=== PATIENT | female | born 2000 | race Caucasian/White ===

== ENCOUNTER 2024-05-05 05:20 | Emergency (ER) | payer SELFPAY ==
[~2024-05-05] VITALS: Ht 157.5 cm; Wt 97.7 kg
[2024-05-05 05:30] VITALS: BP 134/80; TEMP 98.4
[2024-05-05] MEDS ORDERED: AMOXICILLIN 8751 TAB PO (05:50)
[2024-05-05 05:59] VITALS: PULSE 77
[2024-05-05] MEDS ORDERED: Ketorolac 15 MG/ML VIAL IM ONE (06:00)
== END 2024-05-05 05:59 | disposition home or self-care (01) ==
LOC: COL.ER 05:20
DX: L03.012 Cellulitis of left finger (principal); F17.290 Nicotine dependence, other tobacco product, uncomplicated
CPT/HCPCS: J1885